=== PATIENT | male | born 1970 | race Caucasian/White ===

== ENCOUNTER → 2021-10-14 | Outpatient (CLI) | payer OTHER ==
--- NOTE | 2021-10-14 16:42 | CARDNUC ---
[place] [address] CARDIAC NUCLEAR IMAGING REPORT Name: NELSY BETTS Room: [facility]#: [id number] Admission: 10/14/21 Attend Phys: Lori Fisher, Discharge: Date of : 74 Date of Service: 10/14/21 1642 Report #: [id number] THIS REPORT FOR: cc: Physician not on staff Physician not on staff Alonzo Russell MD [facility] ~ APPROVED REPORT Study performed: 10/14/2021 14:00:49 Exam: Nuclear Stress Test Indication: Chest pain Patient Location: Out-Patient Stress Nurse: ADAN Petit Tech:PARDEEP Godfrey Ht: 5 ft 9 in Wt: 194 lbs BSA: 2.04 m2 BMI: 28.64 Medical History Medical History: Hyperlipidemia, CAD s/p [place], CAD s/p stent Medications: asa-81, atorvastatin, repatha Allergies: lamisil, lisinopril, plavix Cardiac Risk Factors: Age, FHX of CAD, Hyperlipidemia Previous Cardiac Procedures: PCI, Myocardial infarction Exercise History: Physically active Stress Test Details Stress Test: Exercise stress testing was performed using a Jose Maria protocol. HR Resting HR: 54 bpm Max Heart Rate (APMHR): 172 bpm Max HR Achieved: 160 bpm Target HR (85% APMHR): 146 bpm % of APMHR: 93 Recovery HR: 83 bpm BP Resting BP: 117/77 mmHg Max BP: 197/65 mmHg ECG Resting ECG: Sinus Rhythm Stress ECG: [place] [address] CARDIAC NUCLEAR IMAGING REPORT Name: NELSY BETTS Room: [facility]#: [id number] Admission: 10/14/21 Attend Phys: Lori Fisher, Discharge: Date of : 74 Date of Service: 10/14/21 1642 Report #: [id number] Change: None Arrhythmia: None Recovery ECG: Sinus Rhythm Recovery ST Change: None Recovery Arrhythmia: None Clinical Reason for Termination: Fatigue Exercise duration: 12 min 59 sec The patient tolerated the standard Jose Maria protocol exercise without significant cardiac complaint. Stress ECG Conclusion The baseline twelve-lead EKG shows sinus rhythm without significant ST segment abnormality. EKGs obtained during and post exercise show sinus rhythm and sinus tachycardia with no significant ST segment or T wave changes when compared to baseline. There were no stress-induced arrhythmias. NM EXAM: Myocardial Perfusion REST/STRESS Imaging Protocol: Rest Tc-99m/Stress Tc-99m 1 day Resting Data Rest SPECT myocardial perfusion imaging was performed in supine position 30 minutes following the intravenous injection of 9.9 mCi of Tc-99m Sestamibi. Time of rest injection: 1300 Date: 10/14/2021 The images were gated to evaluate regional wall motion and calculate left ventricular ejection fraction. Administration Route: IV Exercise Stress At peak stress, the patient was injected intravenously with 33.2mCi of Tc-99m Sestamibi. Time of stress injection: 1415 Date: 10/14/2021 Administration Route: IV Gated Stress SPECT was performed 30 minutes after stress injection. The images were gated to evaluate regional wall motion and calculate left ventricular ejection fraction. Prone imaging was performed. Study Quality Study: Good Artifact: [place] [address] CARDIAC NUCLEAR IMAGING REPORT Name: NELSY BETTS Room: [facility]#: [id number] Admission: 10/14/21 Attend Phys: Lori Fisher, Discharge: Date of : 74 Date of Service: 10/14/21 1642 Report #: [id number] Study Data At rest, the left ventricular ejection fraction was 58%.. Post stress, the left ventricular ejection was 53%.. TID = 0.94. Perfusion Perfusion images obtained at rest and post exercise stress showed no defect to suggest infarct or ischemia. Wall Motion Normal left ventricular wall motion. Nuclear Conclusion ECG Findings: negative for ischemia Clinical Findings: negative for ischemia Nuclear Findings: negative for ischemia Exercise Capacity: normal Left Ventricular Function: normal Risk Study: low Perfusion images show no defect to suggest infarct or ischemia. Left ventricular systolic function appears normal on gated studies. This is a low risk study. <Conclusion> The baseline twelve-lead EKG shows sinus rhythm without significant ST segment abnormality. EKGs obtained during and post exercise show sinus rhythm and sinus tachycardia with no significant ST segment or T wave changes when compared to baseline. There were no stress-induced arrhythmias. <ELECTRONICALLY SIGNED> By: Alonzo Russell MD, FACC 10/14/211641 41 41 Alonzo Russell MD, FACC /INF
--- NOTE | 2021-10-14 16:46 | 2DMMODE ---
[place] [address] 2 D/M-MODE ECHOCARDIOGRAM Name: NELSY BETTS Room: [facility]#: [id number] Admission: 10/14/21 Attend Phys: Lori Fisher, Discharge: Date of : 74 Date of Service: 10/14/21 1646 Report #: [id number] THIS REPORT FOR: cc: Physician not on staff Physician not on staff Alonzo Russell MD [facility] ~ APPROVED REPORT Study performed: 10/14/2021 15:29:10 EXAM: Comprehensive 2D, Doppler, and color-flow Echocardiogram Patient Location: Out-Patient BSA: 2.04 HR: 75 bpm BP: 117/77 mmHg Other Information Study Quality: Good Indications CAD 2D Dimensions IVSd: 10.64 (7-11mm) LVOT Diam: 20.34 (18-24mm) LVDd: 48.91 mm PWd: 10.53 (7-11mm) Ascending Ao: 30.46 (22-36mm) LVDs: 30.00 (25-40mm) Aortic Root: 32.75 mm Volumes Left Atrial Volume (Systole) LA ESV Index: 14.70 mL/m2 Aortic Valve AoV Peak Abdoulaye.: 1.45 m/s AO Peak Gr.: 8.46 mmHg LVOT Max P.56 mmHg AO Mean Gr.: 4.51 mmHg LVOT Mean P.02 mmHg LVOT Max V: 1.07 m/s AO V2 VTI: 25.38 cm LVOT Mean V: 0.64 m/s ORLIN (VTI): 2.58 cm2 LVOT V1 VTI: 20.14 cm Mitral Valve E/A Ratio: 1.23 [place] [address] 2 D/M-MODE ECHOCARDIOGRAM Name: NELSY BETTS Room: [facility]#: [id number] Admission: 10/14/21 Attend Phys: Lori Fisher, Discharge: Date of : 74 Date of Service: 10/14/21 1646 Report #: [id number] MV Decel. Time: 194.76 ms MV E Max Abdoulaye.: 0.68 m/s MV PHT: 56.48 ms MVA (PHT): 3.90 cm2 TDI E/Lateral E': 4.25 E/Medial E': 5.67 Medial E' Abdoulaye.: 0.12 m/s Lateral E' Abdoulaye.: 0.16 m/s Pulmonary Valve PV Peak Abdoulaye.: 0.97 m/s PV Peak Gr.: 3.80 mmHg Tricuspid Valve RAP Estimate: 5.00 mmHg TR Peak Gr.: 31.34 mmHg RVSP: 36.34 mmHg PA Pressure: 36.34 mmHg Left Ventricle The left ventricle is normal size. There is normal LV segmental wall motion. There is normal left ventricular wall thickness. Left ventricular systolic function is normal. LVEF is 55-60%. The left ventricular diastolic function is normal. Right Ventricle The right ventricle is normal size. The right ventricular systolic function is normal. Atria The left atrium size is normal. The right atrium size is normal. Aortic Valve The aortic valve is normal in structure. No aortic regurgitation is present. There is no aortic valvular stenosis. Mitral Valve The mitral valve is normal in structure. There is no mitral valve regurgitation noted. There is normal mitral valve excursion. Tricuspid Valve The tricuspid valve is normal in structure. Trace tricuspid regurgitation. Pulmonic Valve The pulmonary valve is normal in structure. [place] [address] 2 D/M-MODE ECHOCARDIOGRAM Name: NELSY BETTS Room: [facility]#: [id number] Admission: 10/14/21 Attend Phys: Lori Fisher, Discharge: Date of : 74 Date of Service: 10/14/21 1646 Report #: [id number] regurgitation. Great Vessels The aortic root is normal in size. IVC is normal in size and collapses >50% with inspiration. Pericardium There is no pericardial effusion. <Conclusion> The left ventricle is normal size. There is normal left ventricular wall thickness. Left ventricular systolic function is normal. LVEF is 55-60%. The left ventricular diastolic function is normal. There is normal LV segmental wall motion. Mild pulmonic regurgitation. IVC is normal in size and collapses >50% with inspiration. <ELECTRONICALLY SIGNED> By: Alonzo Russell MD, FACC 10/14/21 1646 164 45 Alonzo Russell MD, FACC /INF
== END ==
LOC: M.CRD 09-19 12:54 → M.NUC 08:00 → M.CRD 11:00 → M.NUC 12:30
PROVIDERS: ATTEND Internal Medicine
DX: I37.1 Nonrheumatic pulmonary valve insufficiency (principal); R00.0 Tachycardia, unspecified; I25.10 Atherosclerotic heart disease of native coronary artery without angina pectoris; R07.9 Chest pain, unspecified